=== PATIENT | male | born 1965 | race Caucasian/White ===

== ENCOUNTER 2021-02-11 18:42 | Inpatient (IN) ==
--- NOTE | 2021-02-11 20:52 | XRay Report ---
SINGLE VIEW CHEST CLINICAL HISTORY: Atypical chest pain. FINDINGS: 2 AP, portable, upright chest radiographs are obtained. No prior studies are available for comparison at the time of dictation. The heart is top normal for projection. Emphysematous change is suspected. There is bibasilar scarring/atelectasis. No airspace consolidation or large pleural effus ion is identified. No pneumothorax is seen. The bony thorax is grossly intact. Degenerative change is noted in the shoulders, with calcified joint bodies seen on the right. IMPRESSION: 1. No acute cardiopulmonary abnormality. 2. Suspect emphysema. ACT 112: Negative or not required by law. Electronically signed by: Jameel Cespedes M.D. 02/11/2021 8:50 PM
[2021-02-11] MEDS ORDERED: ASPIRIN CHEW 324 MG PO STA (21:03)
[2021-02-11 21:07] LABS: Basophils # (auto) 0.02 K/uL (0-0.2); Basophils % (auto) 0.1 %; Eosinophils # (auto) 0.18 K/uL (0-0.5); Eosinophils % (auto) 1.3 %; Hematocrit (blood only) 46.4 % (42-52); Hemoglobin 16.8 g/dL (14.0-18.0); Immature Granulocytes # (auto) 0.03 K/uL (0.00-0.02); Immature Granulocytes % (auto) 0.2 %; Lymphocytes # (auto) 2.98 K/uL (1.2-3.4); Lymphocytes % (auto) 21.3 %; Mean Corpuscular Hemoglobin 30.3 pg (25-34); Mean Corpuscular Hgb Conc 36.2 g/dL (32-36); Mean Corpuscular Volume 83.6 fL (80-100); Mean Platelet Volume 9.2 fL (7.4-10.4); Monocytes # (auto) 0.99 K/uL (0.11-0.59); Monocytes % (auto) 7.1 %; Neutrophils # (auto) 9.82 K/uL (1.4-6.5); Platelet Count 334 K/uL (130-400); RDW Coefficient of Variation 14.3 % (11.5-14.5); RDW Standard Deviation 44.3 fL (36.4-46.3); Red Blood Count 5.55 M/uL (4.7-6.1); White Blood Count 14.02 K/uL (4.8-10.8)
--- NOTE | 2021-02-11 21:16 | Emergency Department Note ---
Impression & Plan Left-sided chest pain, Abnormal ECG ED Provider Note INFORMANT: Patient ED PROVIDER(S): David Dahl MD CHIEF COMPLAINT: Chest pain PLAN: Disposition: Admitted Condition: Good Outpatient prescription management: none Referral: None MEDICAL DECISION MAKING: Patient presented because of chest pain. He has a concerning cardiac family history. He did have some subtle ECG changes noted. The patient had aspirin and nitroglycerin ordered. Prior to the nitroglycerin administration his pain resolved. The patient had an unremarkable laboratory panel except for his troponin was markedly elevated. This was concerning for a non-ST elevation [place]. Chest x-ray was unremarkable. The patient had negative cardiac monitoring. The patient's D-dimer was mildly elevated and he was sent for CT imaging. No acute thromboembolic disease was noted. Patient was started on heparin. Consultation was made with the [facility]. The patient will need to be admitted for further management. Triage Nursing notes reviewed and agree them. Vital Signs: reviewed and remarkable for hypertension Differential diagnosis: Cardiac ischemia, aortic dissection, pulmonary embolism, pneumothorax, pneumonia, pericarditis, myocarditis, esophageal rupture, GERD, cholecystitis, pancreatitis, musculoskeletal, as well as other pathologies. Diagnostics interpreted by me: ECG: Twelve-lead ECG reveals a normal sinus rhythm at 80 bpm. There is septal Q waves present. Lateral ST depression present. Subtle half millimeter ST elevation in V2 only. When compared to ECG of 04 Sep 2017 the septal Q wave is old. The lateral ST segments are more depressed. Cardiac Monitoring: Cardiac monitoring ordered by me: The patient was placed on continuous cardiac monitoring and observed. It revealed a normal sinus rhythm at 94 beats per minute without ectopy or evidence of dysrhythmia. Imaging studies: Chest x-ray. Findings: A chest x-ray was performed and revealed no pneumothorax, effusion, infiltrate, pulmonary edema, free air under the diaphragm, or wide mediastinum. Impression: No acute disease. HPI: The patient is a 55 year old male who presents to the Emergency Room with complaints of left-sided chest pain. This started about 20 hours ago and is persisting, albeit more improved at this point The patient also notes the following associated symptoms, left shoulder numbness and discomfort, slight nausea, poor appetite today. The patient has taken no medication for relieving factors. Current pain is rated as 3/10. Patient states that he has been having exertional chest discomfort that resolves with rest over the last several weeks. He is a smoker and does have a strong family history of CAD. No personal known history of CAD. Pt denies LOC, headache, fevers, chills, diaphoresis, visual changes, neck pain, breathing difficulties, vomiting, abdominal pain, back pain, melena, hematochezia, urinary symptoms, numbness, weakness, lymphadenopathy, rash, or other complaints. ROS: See above HPI for pertinent positives & negatives. A total of 10 systems reviewed and were otherwise negative. PAST MEDICAL HISTORY:See Below , patient denies PAST SURGICAL HISTORY:See Below, FAMILY HISTORY:See Below, CAD SOCIAL HISTORY:See Below, smoker HOME MEDICATIONS:See Below ALLERGIES:See Below VITALS:See Below PHYSICAL EXAMINATION: GENERAL: Awake, alert, well-appearing, in no distress HENT: Normocephalic, atraumatic. Oropharynx unremarkable. EYES: Normal conjunctiva. Sclera non-icteric. NECK: Inspection normal. Non-tender. Supple. No nuchal rigidity. FROM. No masses. RESPIRATORY: Clear to auscultation. No wheezes. No rales. Normal respiratory effort. CARDIAC: Normal rate. Normal rhythm. No murmurs. No rubs. Extremities warm and well perfused. Pulses equal. No JVD. GI: Soft, non-distended. No tenderness to palpation. No rebound or guarding. No masses. RECTAL: Deferred. MUSCULOSKELETAL: Atraumatic. Chest examination reveals no tenderness. The back is symmetrical on inspection without obvious abnormality. There is no CVA tenderness to palpation. No joint edema. LOWER EXTREMITIES: Calves are equal size bilaterally and non-tender. No edema. No discoloration. NEURO: Normal sensorium. No sensory or motor deficits noted. SKIN: No rash or jaundice noted. David Dahl MD Past Med/Surg History Social History Smoking Status: Current every day smoker Tobacco Type: Cigarettes Feels Safe at Home: Yes Allergies Allergies Allergy/AdvReac Type Severity Reaction Status Date / Time No Known Allergies Allergy Verified 02/11/21 21:27 Home Meds Home Medications Medication Instructions Recorded Confirmed No Known Home Medications 02/11/21 02/11/21 Results & Data (ED) Vital Signs Vital Signs - 24 hr 02/11/21 18:45 02/11/21 20:42 02/12/21 00:42 Temperature 36.6 C Temperature Source Oral Pulse Rate 94 H 80 Pulse Rate [Right Radial] 83 Pulse Rhythm Regular Pulse Rhythm [Right Radial] Regular Pulse Strength [Right Radial] Normal Respiratory Rate 20 16 16 Respiratory Effort / Characteristics Non-Labored Non-Labored Respiratory Depth Normal Normal Blood Pressure 163/98 H Blood Pressure [Right Arm] 137/90 Blood Pressure Mean 119 Blood Pressure Mean [Right Arm] 105 Blood Pressure Position Sitting Blood Pressure Position [Right Arm] Semi-fowlers Pulse Oximetry 96 98 98 Oxygen Delivery Method Room Air Room Air Room Air Sepsis Recent Fever Within 48 Hours No Sepsis New/Unexplained Change in Mental Status N/A Sepsis Action Taken by Nursing No Action Required 02/12/21 01:25 02/12/21 02:00 Temperature Temperature Source Pulse Rate 84 Pulse Rate [Right Radial] 72 Pulse Rhythm Pulse Rhythm [Right Radial] Regular Pulse Strength [Right Radial] Normal Respiratory Rate 16 Respiratory Effort / Characteristics Non-Labored Respiratory Depth Normal Blood Pressure 137/90 Blood Pressure [Right Arm] 120/84 Blood Pressure Mean Blood Pressure Mean [Right Arm] 96 Blood Pressure Position Blood Pressure Position [Right Arm] Pulse Oximetry 96 Oxygen Delivery Method Room Air Sepsis Recent Fever Within 48 Hours Sepsis New/Unexplained Change in Mental Status Sepsis Action Taken by Nursing Laboratory Data Result diagrams: 02/11/21 21:03 02/11/21 20:51 Lab Results 02/11/21 02/11/21 02/11/21 Range/Units 20:51 20:51 21:03 WBC 14.02 H (4.8-10.8) K/uL RBC 5.55 (4.7-6.1) M/uL Hgb 16.8 (14.0-18.0) g/dL Hct 46.4 (42-52) % MCV 83.6 (80-100) fL MCH 30.3 (25-34) pg MCHC 36.2 H (32-36) g/dL RDW Std Deviation 44.3 (36.4-46.3) fL RDW Coeff of Aracely 14.3 (11.5-14.5) % Plt Count 334 (130-400) K/uL MPV 9.2 (7.4-10.4) fL Immature Gran % (Auto) 0.2 % Neut % (Auto) 70.0 % Lymph % (Auto) 21.3 % [place] % (Auto) 7.1 % Eos % (Auto) 1.3 % Baso % (Auto) 0.1 % Neut # (Auto) 9.82 H (1.4-6.5) K/uL Lymph # (Auto) 2.98 (1.2-3.4) K/uL [place] # (Auto) 0.99 H (0.11-0.59) K/uL Eos # (Auto) 0.18 (0-0.5) K/uL Baso # (Auto) 0.02 (0-0.2) K/uL Immature Gran # (Auto) 0.03 H (0.00-0.02) K/uL PT 9.4 (9.0-12.0) Seconds INR 0.9 (0.9-1.1) APTT 22.6 (21.0-31.0) Seconds PTT Ratio 0.9 D-Dimer 560 H* (0-500) ug/L FEU Sodium 136 (136-145) mmol/L Potassium 4.0 (3.5-5.1) mmol/L Chloride 107 (98-107) mmol/L Carbon Dioxide 21 (21-32) mmol/L Anion Gap 9.0 (3-11) BUN 12 (7-18) mg/dl Creatinine 0.86 (0.6-1.4) mg/dl Est Cr Clr Drug Dosing 129.9 ml/min Est GFR ( Amer) 111.6 ml/min Est GFR (Non-Af Amer) 96.3 ml/min BUN/Creatinine Ratio 13.5 (10-20) Glucose 110 H (70-99) mg/dl Calcium 10.2 H (8.5-10.1) mg/dl Total Bilirubin 0.4 (0.2-1) mg/dl AST 52 H (15-37) U/L ALT 51 (12-78) U/L Alkaline Phosphatase 73 (45-117) U/L Troponin I 3.970 H* (0-0.045) ng/ml Total Protein 8.5 H (6.4-8.2) gm/dl Albumin 4.0 (3.4-5.0) gm/dl Globulin 4.5 H (2.5-4.0) gm/dl Albumin/Globulin Ratio 0.9 (0.9-2) COVID-19 Eval Order SARS-CoV-2 (PCR) (Negative) 02/11/21 02/11/21 Range/Units 23:00 23:00 WBC (4.8-10.8) K/uL RBC (4.7-6.1) M/uL Hgb (14.0-18.0) g/dL Hct (42-52) % MCV (80-100) fL MCH (25-34) pg MCHC (32-36) g/dL RDW Std Deviation (36.4-46.3) fL RDW Coeff of Aracely (11.5-14.5) % Plt Count (130-400) K/uL MPV (7.4-10.4) fL Immature Gran % (Auto) % Neut % (Auto) % Lymph % (Auto) % [place] % (Auto) % Eos % (Auto) % Baso % (Auto) % Neut # (Auto) (1.4-6.5) K/uL Lymph # (Auto) (1.2-3.4) K/uL [place] # (Auto) (0.11-0.59) K/uL Eos # (Auto) (0-0.5) K/uL Baso # (Auto) (0-0.2) K/uL Immature Gran # (Auto) (0.00-0.02) K/uL PT (9.0-12.0) Seconds INR (0.9-1.1) APTT (21.0-31.0) Seconds PTT Ratio D-Dimer (0-500) ug/L FEU Sodium (136-145) mmol/L Potassium (3.5-5.1) mmol/L Chloride (98-107) mmol/L Carbon Dioxide (21-32) mmol/L Anion Gap (3-11) BUN (7-18) mg/dl Creatinine (0.6-1.4) mg/dl Est Cr Clr Drug Dosing ml/min Est GFR ( Amer) ml/min Est GFR (Non-Af Amer) ml/min BUN/Creatinine Ratio (10-20) Glucose (70-99) mg/dl Calcium (8.5-10.1) mg/dl Total Bilirubin (0.2-1) mg/dl AST (15-37) U/L ALT (12-78) U/L Alkaline Phosphatase (45-117) U/L Troponin I (0-0.045) ng/ml Total Protein (6.4-8.2) gm/dl Albumin (3.4-5.0) gm/dl Globulin (2.5-4.0) gm/dl Albumin/Globulin Ratio (0.9-2) COVID-19 Eval Order Covid19 at [facility] SARS-CoV-2 (PCR) NEGATIVE (Negative) Administered Medications Heparin Sodium/Dextrose (Heparin Sodium/Dextrose) 25,000 units in 500 mls @ 35 mls/hr IV .[id number]; Protocol Stop: 03/13/21 22:14 Last Admin: 02/11/21 23:43 Dose: 1,750 units/hr, 35 mls/hr Documented by: [id number] Cosigned by: [id number] Discontinued Medications Aspirin (Aspirin Chew 324 Mg) 324 mg PO NOW STA Stop: 02/11/21 21:04 Last Admin: 02/11/21 21:31 Dose: 324 mg Documented by: [id number] Heparin Sodium (Porcine) (Heparin Sod (Porcine) 1000 Unit/Ml) 1 units IV NOW ONE Stop: 02/11/21 22:10 Last Admin: 02/11/21 23:43 Dose: 8,000 units Documented by: [id number] Cosigned by: [id number] Heparin Sodium/Dextrose (Heparin Iv Adult Wt-Based Standard With Bolus Protocol) 1 ea N/A NOW STA; Protocol Stop: 02/11/21 21:55 Last Admin: 02/11/21 23:46 Dose: Not Given Documented by: [id number] Ioversol (Optiray 320 125ml) 119 ml IV ONCE ONE Stop: 02/11/21 23:14 Last Admin: 02/11/21 23:13 Dose: 119 ml Documented by: [id number] Metoprolol Tartrate (Metoprolol Tartrate 25 Mg Tab) 12.5 mg PO NOW STA Stop: 02/12/21 00:45 Last Admin: 02/12/21 01:26 Dose: 12.5 mg Documented by: [id number] Metoprolol Tartrate (Metoprolol Tartrate 1 Mg/Ml Vial) 2.5 mg IV NOW STA Stop: 02/12/21 00:45 Last Admin: 02/12/21 01:25 Dose: 2.5 mg Documented by: [id number] Imaging Data Radiologist's Impression: Chest X-Ray 02/11/21 20:38 SINGLE VIEW CHEST CLINICAL HISTORY: Atypical chest pain. FINDINGS: 2 AP, portable, upright chest radiographs are obtained. No prior studies are available for comparison at the time of dictation. The heart is top normal for projection. Emphysematous change is suspected. There is bibasilar scarring/atelectasis. No airspace consolidation or large pleural effusion is identified. No pneumothorax is seen. The bony thorax is grossly intact. Degenerative change is noted in the shoulders, with calcified joint bodies seen on the right. IMPRESSION: 1. No acute cardiopulmonary abnormality. 2. Suspect emphysema. ACT 112: Negative or not required by law. Electronically signed by: Jameel Cespedes M.D. 02/11/2021 8:50 PM Discharge Plan Visit Data Chief Complaint: Chest Pain Stated Complaint: CHEST PAIN SINCE MIDNIGHT ED Provider: David Dahl Discharge Problem: Left-sided chest pain, Abnormal ECG Forms Stand Alone Forms: [place] Prescriptions Prescriptions: No Action No Known Home Medications RF: 0 Referrals Referrals: PCP,NO [Physician] -
[2021-02-11 21:19] LABS: INR 0.9 (0.9-1.1); Partial Thromboplastin Ratio 0.9; Partial Thromboplastin Time 22.6 Seconds (21.0-31.0); Prothrombin Time 9.4 Seconds (9.0-12.0)
[2021-02-11 21:23] LABS: BUN Creatinine Ratio 13.5 (10-20); Calcium 10.2 mg/dl (8.5-10.1); Creatinine Clr Calc Pharmacy 129.9 ml/min; Est GFR (African American) 111.6 ml/min; Est GFR (Non-African American) 96.3 ml/min
[2021-02-11 21:43] LABS: Albumin Globulin Ratio 0.9 (0.9-2); Bilirubin,Total 0.4 mg/dl (0.2-1); Globulin 4.5 gm/dl (2.5-4.0); Total Protein 8.5 gm/dl (6.4-8.2); Troponin I 3.97 ng/ml (0-0.045)
[2021-02-11] MEDS ORDERED: MoRPHine SULFATE 2 MG/ML CARP IV PRN (21:54)
[2021-02-11] MEDS ORDERED: Heparin IV Adult Wt-Based Standard WITH Bolus Protocol STA (21:54)
[2021-02-11 22:01] LABS: D Dimer 560 ug/L FEU (0-500)
[2021-02-11] MEDS ORDERED: HEPARIN SOD (PORCINE) 1000 UNIT/ML IV ONE (22:09)
[2021-02-11] MEDS ORDERED: OPTIRAY 320 125ml IV ONE (23:13)
[2021-02-11] MEDS: HEPARIN SODIUM/DEXTROSE 25,000 UNITS/500 ML BAG IV SCH (23:43)
[2021-02-12] MEDS ORDERED: METOPROLOL TARTRATE 1 MG/ML VIAL IV STA (00:44)
[2021-02-12] MEDS ORDERED: METOPROLOL TARTRATE 25 MG TAB PO STA (00:44)
[2021-02-12] MEDS: NITROGLYCERIN SL 0.4 MG/TAB TAB SL PRN ×3 (03:26→04:04)
[2021-02-12] MEDS ORDERED: ACETAMINOPHEN 325 MG TAB PO PRN (03:28)
[2021-02-12] MEDS ORDERED: NITROGLYCERIN SL 0.4 MG/TAB TAB SL PRN (03:28)
[2021-02-12] MEDS: NITROGLYCERIN 2% OINTMENT 30GM TUBE EXT SCH ×2 (04:04→15:42)
[2021-02-12] MEDS: SODIUM CHLORIDE 0.9% 1000ML 1,000 ML IV SCH ×2 (04:14→19:33)
[2021-02-12 05:30] LABS: Basophils # (auto) 0.04 K/uL (0-0.2); Basophils % (auto) 0.3 %; Eosinophils # (auto) 0.15 K/uL (0-0.5); Eosinophils % (auto) 1.2 %; Hematocrit (blood only) 44.6 % (42-52); Hemoglobin 15.8 g/dL (14.0-18.0); Immature Granulocytes # (auto) 0.03 K/uL (0.00-0.02); Immature Granulocytes % (auto) 0.2 %; Lymphocytes # (auto) 2.37 K/uL (1.2-3.4); Lymphocytes % (auto) 19.6 %; Mean Corpuscular Hemoglobin 29.9 pg (25-34); Mean Corpuscular Hgb Conc 35.4 g/dL (32-36); Mean Corpuscular Volume 84.5 fL (80-100); Mean Platelet Volume 8.6 fL (7.4-10.4); Monocytes # (auto) 0.74 K/uL (0.11-0.59); Monocytes % (auto) 6.1 %; Neutrophils # (auto) 8.78 K/uL (1.4-6.5); Neutrophils % (auto) 72.6 %; Platelet Count 300 K/uL (130-400); RDW Coefficient of Variation 14.5 % (11.5-14.5); RDW Standard Deviation 45.2 fL (36.4-46.3); Red Blood Count 5.28 M/uL (4.7-6.1); White Blood Count 12.11 K/uL (4.8-10.8)
[2021-02-12 05:51] LABS: Partial Thromboplastin Ratio 1.8
[2021-02-12 06:17] LABS: Partial Thromboplastin Time 47.3 Seconds (21.0-31.0)
[2021-02-12 06:43] LABS: BUN Creatinine Ratio 13.9 (10-20); Calcium 9.6 mg/dl (8.5-10.1); Creatinine Clr Calc Pharmacy 136.2 ml/min; Est GFR (African American) 113.8 ml/min; Est GFR (Non-African American) 98.2 ml/min; Magnesium 2.2 mg/dl (1.8-2.4); Potassium 3.9 mmol/L (3.5-5.1)
[2021-02-12 07:13] LABS: Troponin I 4.6 ng/ml (0-0.045)
--- NOTE | 2021-02-12 07:15 | CT Scan Report ---
CHEST CTA for PULMONARY ARTERIES CT DOSE: 735.25 mGy.cm HISTORY: Atypical chest pain , elevated dimer TECHNIQUE: Multiaxial CT images of the chest were performed following the intravenous administration of contrast to evaluate the pulmonary arteries. Maximal intensity projection images were also obtaine d. A dose lowering technique was utilized adhering to the principles of ALARA. COMPARISON STUDY: CT abdomen 04/18/2006. FINDINGS: The visualized liver demonstrates fatty change. The spleen is unremarkable. Bilateral benig n adrenal adenomas are again noted. Possible small exophytic lesion within the upper pole the left ki dney on image 50. This measures 9 mm there is technically too small to characterize. No mediastinal o r hilar lymphadenopathy. No pleural or pericardial effusions. The heart is normal in size. Moderate c alcified plaque within the aortic valve. Normal caliber thoracic aorta with no evidence for dissectio n. No filling defects within the pulmonary arteries to suggest a pulmonary embolus. Slightly distende d gas and fluid-filled esophagus. No fractures within the visualized osseous structures. Partially vi sualized degenerative changes within the right humeral joint. No pneumothorax. Mild central bronchial wall thickening. Small linear scarlike density within the right middle lobe anteriorly. No focal jann g consolidations to suggest pneumonia. No evidence for pulmonary edema. IMPRESSION: 1. No evidence for pulmonary embolus. 2. No focal lung consolidations to suggest pneumonia. 3. Mild central bronchial wall thickening. This could represent a mild chronic bronchitis. 4. Slightly distended gas and fluid-filled esophagus. 5. Hepatic steatosis. 6. Possible 9 mm exophytic lesion within the upper pole the left kidney. This is too small to charact erize but could represent a solid renal lesion. Therefore, dedicated renal CT or MRI is recommended t o exclude the possibility of a renal mass. 7. These findings were called/faxed to the emergency department following dictation. ACT 112: Positive. There are findings on this exam that require communication between the performing entity and the patient following Patient Test Result Information Act ([place] Act 112) guidelines. Electronically signed by: Celso Narayanan M.D. 02/12/2021 7:14 AM
--- NOTE | 2021-02-12 08:01 | History and Physical Report ---
DATE OF ADMISSION: 02/12/2021. CHIEF COMPLAINT: Chest pain. HISTORY OF PRESENT ILLNESS: A 55-year-old male with no significant past medical history, who presents with chest pain. The patient says since last midnight he is having chest pain on the left side of his chest and some numbness in the left shoulder. It was 8/10 in severity in the night , it was 5/10 when he came to the ER. After nitro the pain is almost resolved now. There was slight sweating and chills during the episode. No shortness of breath, no headache, no dizziness, no blurred visions, no earache, no runny nose, no sore throat, no cough, no fevers, no abdominal pain. Normal bowel and bladder movements. No hematuria. No blood in the stools or black stools. No swelling in the legs. Otherwise, he is active. He says his father had CABG at the age of 62 and he smokes 1-2 pack of cigarettes daily. ALLERGIES: No known drug allergies. PAST MEDICAL HISTORY: As mentioned above. PAST SURGICAL HISTORY: Appendectomy, repair of the rotator cuff. MEDICATIONS: None. FAMILY HISTORY: Father had CABG. SOCIAL HISTORY: Smokes 1-2 packs a day for last 30 years. No alcohol use. No drug use. REVIEW OF SYSTEMS: As per HPI. Rest of the review of systems is negative. PHYSICAL EXAMINATION: GENERAL: The patient is obese, not in acute distress. VITAL SIGNS: Temperature 36.6, pulse 94, respiratory rate 20, blood pressure 163/98, oxygen 96% on room air. HEENT: Pupils equal, round and reactive to light. Oral mucosa moist. NECK: No JVD. No neck masses. CARDIOVASCULAR: S1 and S2 heard. Ejection systolic murmur heard, there is tachycardia. RESPIRATORY SYSTEM: Normal AP diameter. No accessory muscle use. No wheezing, no crackles. ABDOMEN: Soft, bowel sounds present, nontender, no distention. CENTRAL NERVOUS SYSTEM: Cranial nerves II-XII grossly intact, nonfocal. EXTREMITIES: No edema, no erythema. LABORATORY DATA: WBC 14, hemoglobin 16.8, hematocrit 46.4, platelets 334. PT 9.4, INR 0.9, APTT 22.6. D-dimer 560. Sodium 136, potassium 4, chloride 107, bicarbonate 21, BUN 12, creatinine 0.8, serum glucose 110, calcium 10.2, total bilirubin 0.4, AST 52, ALT 51, alkaline phosphatase 73, troponin I of 3.9. SARS-CoV-2 PCR negative. IMAGING DATA: Chest x-ray, emphysema, no acute findings. CTA of the chest, no PE. EKG: Normal sinus rhythm at a rate of 88, possible left atrial enlargement, septal infarct, age indeterminate. Possible ST depression in lateral leads. ASSESSMENT AND PLAN: This is a 55-year-old male who presents with chest pain and found to have non-ST elevated myocardial infarction. 1. Non-ST elevated myocardial infarction: There are EKG changes, ST depression in lateral leads. Troponin of 3.9. Risk factors of smoking, age and family history. Started with IV heparin . Will continue with aspirin, high-dose statin, and nitroglycerin paste and b hailey. Follow lipid profile. Follow serial enzymes, echo. Keep him n.p.o. and consult cardiology in the a.m. for possible cardiac catheterization. 2. Smoking: Needs counseling. 3. Mild elevation of calcium Follow the repeat labs in the a.m. 4. Hypertension: Could be situational. Placed on Lopressor and nitroglycerin paste. Will monitor. 5. Deep venous thrombosis prophylaxis: On IV heparin. DISPOSITION: Closely monitor in the tele floor. Level 1 full code. Expect to discharge home and follow with family doctor. Job ID: [id number] [facility]
--- NOTE | 2021-02-12 08:58 | Electrocardiogram Report ---
Test Reason : Blood Pressure : / mmHG Vent. Rate : 088 BPM Atrial Rate : 088 BPM P-R Int : 178 ms QRS Dur : 094 ms QT Int : 376 ms P-R-T Axes : 062 001 -42 degrees QTc Int : 454 ms Normal sinus rhythm Possible Left atrial enlargement Abnormal ECG ST segment changes concerning for ischemia Confirmed by Hiren Rice ([id number]) on 02/12/2021 8:57:35 AM Referred By: REFERRED SELF Confirmed By:Jose Rice
[2021-02-12] MEDS: ASPIRIN 81 MG ECTAB PO SCH (09:00)
[2021-02-12] MEDS: ATORVASTATIN 40 MG TAB PO SCH (09:01)
[2021-02-12] MEDS: METOPROLOL TARTRATE 25 MG TAB PO SCH ×2 (09:01→20:34)
--- NOTE | 2021-02-12 09:04 | Electrocardiogram Report ---
Test Reason : Blood Pressure : / mmHG Vent. Rate : 077 BPM Atrial Rate : 077 BPM P-R Int : 186 ms QRS Dur : 094 ms QT Int : 410 ms P-R-T Axes : 064 002 -53 degrees QTc Int : 463 ms Normal sinus rhythm Left ventricular hypertrophy with repolarization abnormality Abnormal ECG When compared with ECG of 11-FEB-2021 18:45, (unconfirmed) T wave inversion now evident in Inferior leads Confirmed by Hiren Rice ([id number]) on 02/12/2021 9:04:23 AM Referred By: REFERRED SELF Confirmed By:Jose Rice
[2021-02-12] MEDS ORDERED: ONDANSETRON INJ 2 MG/ML 2 ML VIAL ONE (09:47)
--- NOTE | 2021-02-12 09:55 | Cardiology Consultation ---
Date of Consultation February 12, 2021 Assessment & Plan (1) Non-ST elevation (NSTEMI) myocardial infarction: (2) Severe aortic stenosis: (3) Bicuspid aortic valve: Patient presenting with NSTEMI. Currently chest pain-free. Elevated troponin secondary to severe symptomatic aortic stenosis with possible underlying coronary disease. No significant regional wall motion abnormalities on echocardiogram. Currently resting comfortably. Risk versus benefit of cardiac catheterization with coronary angiography discussed. Patient agreeable. Natural history and pathophysiology of bicuspid aortic valve with severe aortic stenosis discussed. Prognosis reviewed. Recommend transfer to tertiary care facility after coronary angiography. Patient is agreeable. Hold IV heparin in anticipation of coronary angiography. History of Present Illness Reason for Consultation: NSTEMI Requesting Physician: Dr. López Attending Physician: Jonah López MD History of Present Illness 55-year-old patient presented to the emergency department with chest discomfort. Describes a sharp chest pain and heaviness beginning at midnight 02/11/2021. The discomfort waxed and waned throughout the day ultimately prompting ER evaluation at 5 PM. When he presented to the ER he reported 7-8/10 chest discomfort. Treated with IV heparin. Discomfort reduced to 2/10. 2 recurrent episodes of moderate chest discomfort overnight. Currently pain-free. Treated with sublingual nitroglycerin x2. Now reports headache and nausea attributed to nitroglycerin. Describes exertional chest discomfort beginning approximately 3 months ago while push mowing his lawn. He also owns a cleaning business and has consistently reproduce discomfort with moderate to high levels of activity. No lightheadedness, dizziness, syncope, or near syncope. Admits to smoking 1 pack of cigarettes per day for more than 30 years. Denies personal history of coronary disease, congestive heart failure, or rheumatic fever as a child. Echocardiogram performed more than 10 years ago describing mild aortic stenosis without follow-up. Preliminary review of bedside 2D transthoracic echocardiogram demonstrating preserved LV systolic function, no regional wall motion abnormalities, bicuspid aortic valve with severe aortic stenosis. Allergies Allergy/AdvReac Type Severity Reaction Status Date / Time No Known Allergies Allergy Verified 02/11/21 21:27 Home Medications Medication Instructions Recorded Confirmed Type aspirin 81 mg tablet,delayed 81 mg PO DAILY 30 Days #30 tab 02/12/21 Rx release atorvastatin 40 mg tablet 80 mg PO QAM 30 Days #60 tab 02/12/21 Rx metoprolol tartrate 25 mg tablet 12.5 mg PO BID 30 Days #30 tab 02/12/21 Rx Patient History Social History Smoking Status: Current every day smoker Tobacco Type: Cigarettes Hx Substance Use: No Communication Ability: Effective How many Children do You have: 2 Feels Safe at Home: Yes Assistive Devices: None Review of Systems Review of Systems: All systems reviewed & are unremarkable except as noted in Subjective Physical Exam Constitutional: well developed and well nourished; no acute distress Respiratory: no respiratory distress, no labored breathing, no retractions and does not use accessory muscles Auscultation: no diminished lung sounds, no crackles, no rales, no rhonchi and no wheezes Cardiovascular: Rate/Rhythm: regular rate and regular rhythm Heart Sounds: normal S1 and + murmur (3/6 medium pitched, mid peaking systolic ejection murmur); + abnormal S2, no gallop and no cardiac rub Vessels: + carotid bruit (2/4 bilateral versus transmitted aortic valve murmur), femoral pulses present and radial pulses present; no JVD Gastrointestinal (Abdomen): Inspection/Auscultation: normal bowel sounds; abdomen not distended Percussion/Palpation: abdomen soft; abdomen nontender, no guarding and abdomen not rigid Neurologic: CN's II-XI intact bilaterally and moves all extremities; no focal motor deficits Speech / Cognition: normal speech Motor/Sensory: no tremor Psychiatric: A+Ox3, euthymic affect Results & Data ([facility]) Vital Signs (Past 12 Hours) Vital Signs Pulse Pulse Resp BP BP Pulse Ox 02/12/21 08:00 73 16 108/59 L 96 02/12/21 05:30 78 16 133/81 94 02/12/21 04:50 65 17 92 02/12/21 04:40 66 17 92 02/12/21 04:30 63 17 91 02/12/21 04:20 83 17 93 02/12/21 04:10 82 22 119/83 92 02/12/21 04:00 85 18 119/82 92 02/12/21 03:50 75 20 92 02/12/21 03:40 72 15 95 02/12/21 03:30 86 19 122/83 92 02/12/21 03:28 83 16 122/83 93 02/12/21 03:20 72 22 93 02/12/21 03:10 66 20 91 02/12/21 03:00 80 29 H 112/74 95 02/12/21 02:50 74 23 93 02/12/21 02:40 75 20 94 02/12/21 02:33 93 02/12/21 02:20 79 22 95 02/12/21 02:10 77 12 94 02/12/21 02:00 75 72 18 141/105 H 120/84 95 02/12/21 01:50 78 18 94 02/12/21 01:40 72 16 120/84 93 02/12/21 01:30 83 22 131/99 93 02/12/21 01:25 84 137/90 02/12/21 01:20 81 17 91 02/12/21 01:10 82 21 93 02/12/21 01:00 84 18 137/90 02/12/21 00:50 90 17 94 02/12/21 00:42 83 16 137/90 98 02/12/21 00:40 92 H 20 94 02/12/21 00:30 80 19 135/95 02/12/21 00:20 83 14 95 02/12/21 00:10 81 23 94 02/12/21 00:00 74 16 140/99 95 02/11/21 23:50 89 17 95 02/11/21 23:40 79 22 94 02/11/21 23:30 76 22 95 02/11/21 23:20 89 18 96 02/11/21 23:14 89 23 96 02/11/21 23:00 91 02/11/21 22:50 85 18 93 02/11/21 22:40 93 H 17 95 02/11/21 22:30 77 15 02/11/21 22:20 83 18 94 02/11/21 22:10 84 16 94 02/11/21 22:00 86 28 H 91 02/11/21 21:50 87 14 96
--- NOTE | 2021-02-12 09:56 | Pre Anesthesia Assessment ---
Date of Service February 12, 2021 Pre Sedation Assessment Vital Signs Temp Pulse Pulse Resp BP BP BP 02/13/21 08:00 58 L 02/13/21 07:00 36.8 C 69 17 152/92 H 02/13/21 04:49 70 02/13/21 03:28 02/13/21 03:18 36.6 C 76 18 141/84 H 02/12/21 23:42 36.9 C 68 18 132/74 02/12/21 19:15 36.8 C 73 18 134/83 02/12/21 15:50 69 16 137/82 02/12/21 15:04 76 16 132/83 02/12/21 14:26 36.7 C 65 16 117/82 02/12/21 13:30 69 125/85 02/12/21 13:00 65 02/12/21 12:30 61 98/72 L 02/12/21 12:15 73 14 109/71 02/12/21 12:00 63 118/74 02/12/21 11:45 65 14 118/67 02/12/21 11:31 68 150/89 H 02/12/21 11:30 67 13 Pulse Ox Pulse Ox 02/13/21 08:00 02/13/21 07:00 93 02/13/21 04:49 02/13/21 03:28 94 02/13/21 03:18 90 02/12/21 23:42 94 02/12/21 19:15 91 02/12/21 15:50 92 02/12/21 15:04 93 02/12/21 14:26 98 02/12/21 13:30 95 02/12/21 13:00 96 02/12/21 12:30 93 02/12/21 12:15 94 02/12/21 12:00 93 02/12/21 11:45 94 02/12/21 11:31 94 02/12/21 11:30 95 Cardiovascular + regular rate and + regular rhythm + S1 normal and + murmur; no S2 normal + carotid bruit, + femoral pulses present and + radial pulses present; no JVD no edema Respiratory normal respiratory effort, lungs clear to auscultation Pre-Sedation Airway Assessment Smoking Status: Current every day smoker IV Notes The planned sedation has been discussed with the patient. Informed Consent was obtained. I have identified the patient, determined the appropriateness of sed ation and have assessed the patient immediately prior to the procedure. All medicine(s) and interventions are by my order.
[2021-02-12 10:08] LABS: Estimated Average Glucose 126 mg/dl
[2021-02-12] MEDS ORDERED: fentaNYL citrate 100 MCG/2 ML VIAL ONE (10:19)
[2021-02-12] MEDS ORDERED: MIDAZOLAM HCL 1 MG/ML 2ML VIAL ONE (10:19)
[2021-02-12] MEDS ORDERED: niCARdipine HCL INJ 2.5 MG/ML 10 ML AMP ONE (10:19)
[2021-02-12] MEDS ORDERED: HEPARIN (PORCINE) 1000 UNIT/ML 10 ML (CATH LAB USE ONLY) ONE (10:19)
[2021-02-12] MEDS ORDERED: NITROGLYCERIN/D5W 100MCG/ML 20ML SYR ONE (10:20)
--- NOTE | 2021-02-12 10:55 | Post Anesthesia Assessment ---
Date of Service February 12, 2021 Post Sedation Assessment Vital Signs Temp Pulse Pulse Resp BP BP BP 02/13/21 08:00 58 L 02/13/21 07:00 36.8 C 69 17 152/92 H 02/13/21 04:49 70 02/13/21 03:28 02/13/21 03:18 36.6 C 76 18 141/84 H 02/12/21 23:42 36.9 C 68 18 132/74 02/12/21 19:15 36.8 C 73 18 134/83 02/12/21 15:50 69 16 137/82 02/12/21 15:04 76 16 132/83 02/12/21 14:26 36.7 C 65 16 117/82 02/12/21 13:30 69 125/85 02/12/21 13:00 65 02/12/21 12:30 61 98/72 L 02/12/21 12:15 73 14 109/71 02/12/21 12:00 63 118/74 02/12/21 11:45 65 14 118/67 02/12/21 11:31 68 150/89 H 02/12/21 11:30 67 13 Pulse Ox Pulse Ox 02/13/21 08:00 02/13/21 07:00 93 02/13/21 04:49 02/13/21 03:28 94 02/13/21 03:18 90 02/12/21 23:42 94 02/12/21 19:15 91 02/12/21 15:50 92 02/12/21 15:04 93 02/12/21 14:26 98 02/12/21 13:30 95 02/12/21 13:00 96 02/12/21 12:30 93 02/12/21 12:15 94 02/12/21 12:00 93 02/12/21 11:45 94 02/12/21 11:31 94 02/12/21 11:30 95 Recovery Score Activity: Moves 4 extremities Respiration: Deep Breath/Cough Circulation: +/-20% PreAnes Value Consciousness: Arouseable (by name) Oxygen Saturation: > 92% On Room Air Discharge Sedation Level of Care: Phase I Post Sedation Plan On clinical assessment, the patient appears to have tolerated the sedation without complications. Patient is recovering as anticipated. Patient will continue to be monitored by nursing and may be discharged when sedation discharge criteria are met per below protocol. Upon Completions of procedure up to 15 minutes continue every 5 minute vital signs and the P.A.R. score; then discharge to a Phase I or Fast Track to Phase II per the following guidelines: * Discharge Patient to appropriate Phase II area if PAR is 8 or greater or return to pre- procedure baseline. The post - procedure orders will be as directed. * If PAR score is less than 8 or not return to pre-procedure baseline then patient will follow Phase I monitoring till PAR is reached for Phase II. The Phase I may be done in procedure room or may call to secure a Phase I area. * If naloxone or flumazenil are used for reversal, hold in Phase I for continued monitoring from when last reversal dose was given for a minimum of 60 minutes or longer pending the nurse and/or physician discretion of patient condition before discharge to Phase II. Please call the Sedation Physician to re-evaluate and complete post-note for discharge to Phase II area. Do NOT discharge from procedure sedation or Phase 1 until post- sedation evaluation note is complete by procedure /sedation MD Sedation Discharge Instructions to be given to the patient at discharge to home.
--- NOTE | 2021-02-12 11:11 | Cardiac Catheterization ---
Cardiac Cath Procedure Full Procedure Date February 12, 2021 Pre-Procedure Diagnosis Pre-Procedure Diagnosis: Non STEMI and Valvular Disease (Severe Aortic stenosis, bicuspid aortic valve) AUC Score AUC Score: 8 Post-Procedure Diagnosis Post-Procedure Diagnosis: Severe CAD Procedure(s) Performed Procedure(s) Performed: Coronary Angiography Cuprous Chloride Helper Christian Martinez DO Hair Blender(s) Cindyr EYELET CUTTER Estimated Blood Loss Estimated Blood Loss: 5cc Medication(s) Medication(s): Fentanyl, Heparin, Lidocaine 1%, Nicardipine and Versed Summary of Findings 100% proximal RCA stenosis fills via left to right collaterals. Hemodynamics Rest Ao:: 112/71/88 Final Ao: 121/76/83 LV: N/A Recommendations Recommendations: CABG and Valve Replacement Radiation Exposure (mGy) 836 Contrast (mls) 50 Fluids (cc crystalloids) Fluids (cc crystalloids): 30 Nss Drains Drains: N/A Anesthesia Moderate sedation. Start, 1033. End 1049. Sedation monitor: Chandu SALINAS Procedural Complication(s) None Disposition Gynecological Assistant Holding/Recovery I attest to the content of the Intraoperative Record and any orders documented therein. Any exceptions are noted below. ACC Data: Gynecological Assistant Cardiac Status Clinical evaluation leading to the procedure 55-year-old patient presented to the hospital with 3-month history of exertional angina followed by episode of resting angina probably 4 hours prior to presentation. Diagnosed with NSTEMI and severe aortic stenosis secondary to bicuspid valve. CAD Presenation: Non STEMI Heart Failure: No Cardiogenic Shock within 24 Hours: No Cardiac Arrest within 24 Hours: No Imaging Studies Past 6 Months: Yes Stress Studies Past 6 Months: No STEMI OR Non-STEMI Symptom Onset Date: 02/11/21 Symptom Onset Time: 00:00 Thrombolytics: No Coronary Anatomy Dominant: Right Left Main (% Stenosis): Normal LAD (% Stenosis): Proximal (Mild luminal irregularities, 10%) and Mid (20%) D1 (% Stenosis): Normal (small vessel) D2 (% Stenosis): Normal (Large vessel which reaches the left ventricular apex giving rise to left to right collaterals supplying right posterior descending artery.) Circumflex (% Stenosis): Mid (30% at bifurcation of large OM1) OM1 (% Stenosis): Normal (Large vessel which bifurcates proximally.) L PL1 (% Stenosis): Normal RCA (% Stenosis): Proximal (100% with large thrombus) R PDA (% Stenosis): Normal (Fills via [id number] collaterals from second large diagonal branch vessel) Diagnostic Physicians Name: Christian Martinez DO Closure Device Percutaneous Entry Location: Radial Closure Device: Radial Band Recommendations: CABG and Valve Replacement Intraprocedure Events Significant Disection: No Perforation: No
[2021-02-12 21:39] LABS: Partial Thromboplastin Ratio 1.4; Partial Thromboplastin Time 37.8 Seconds (21.0-31.0)
--- NOTE | 2021-02-12 21:41 | Hospitalist Progress Note ---
Date of Service February 12, 2021 Assessment & Plan Admission and Anticipated Discharge Date Admission Date: February 12, 2021 Supervising Physician Co-Signing Physician Notes ASSESSMENT AND PLAN: This is a 55-year-old male who presents with chest pain and found to have non-ST elevated myocardial infarction. 1. Non-ST elevated myocardial infarction 100% RCA Occlusion Severe Aortic Stenosis -- s/p Cardiac Cath (+) 100% RCA Occlusion Severe , Bicuspid Aortic Valve -- transfer to [facility] for CABG -- continue Heparin drip Metoprolol, Lipitor 2. Smoking: Needs counseling. 3. Mild elevation of calcium 4. Hypertension: -- monitor 5. Deep venous thrombosis prophylaxis: On IV heparin. DISPOSITION: transfer to [facility] Subjective ff up for chest pain, etc seen resting in bed, comfortable reports mild chest discomfort 2/10 no dyspnea, palpitations, dizziness no bleeding denies other symptoms Review of Systems Review of Systems: all noted and negative except for above Physical Exam Physical Exam: General- oriented x 3, not in distress, speaks in sentences with no effort or accessory muscle use Eyes- anicteric Neck- no JVD Lungs- clear breath sounds bilaterally, no rales/wheezes Heart- normal rate, regular rhythm; no murmurs Abdomen- normal bowel sounds, nondistended, soft, nontender Extremities- no pretibial edema, no calf tenderness Neuro- alert, oriented x 3; no gross focal neurologic deficits Skin- warm & dry Results & Data Results & Data ([facility]) Vital Signs (Past 12 Hours) Vital Signs Temp Pulse Pulse Resp BP BP Pulse Ox 02/12/21 19:15 36.8 C 73 18 134/83 91 02/12/21 15:50 69 16 137/82 92 02/12/21 15:04 76 16 132/83 93 02/12/21 14:26 36.7 C 65 16 117/82 98 02/12/21 13:30 69 125/85 95 02/12/21 13:00 65 96 02/12/21 12:30 61 98/72 L 93 02/12/21 12:15 73 14 109/71 94 02/12/21 12:00 63 118/74 93 02/12/21 11:45 65 14 118/67 94 02/12/21 11:31 68 150/89 H 94 02/12/21 11:30 67 13 95 02/12/21 11:15 60 20 112/70 94 02/12/21 11:00 65 20 124/89 95 all noted and reviewed including below
--- NOTE | 2021-02-12 21:47 | Discharge Summary ---
Date of Service February 12, 2021 Admission HPI Per Admitting Provider CHIEF COMPLAINT: Chest pain. HISTORY OF PRESENT ILLNESS: A 55-year-old male with no significant past medical history, who presents with chest pain. The patient says since last midnight he is having chest pain on the left side of his chest and some numbness in the left shoulder. It was 8/10 in severity in the night , it was 5/10 when he came to the ER. After nitro the pain is almost resolved now. There was slight sweating and chills during the episode. No shortness of breath, no headache, no dizziness, no blurred visions, no earache, no runny nose, no sore throat, no cough, no fevers, no abdominal pain. Normal bowel and bladder movements. No hematuria. No blood in the stools or black stools. No swelling in the legs. Otherwise, he is active. He says his father had CABG at the age of 62 and he smokes 1-2 pack of cigarettes daily. Admission Exam (Per Admitting) Constitutional PHYSICAL EXAMINATION: GENERAL: The patient is obese, not in acute distress. VITAL SIGNS: Temperature 36.6, pulse 94, respiratory rate 20, blood pressure 163/98, oxygen 96% on room air. HEENT: Pupils equal, round and reactive to light. Oral mucosa moist. NECK: No JVD. No neck masses. CARDIOVASCULAR: S1 and S2 heard. Ejection systolic murmur heard, there is tachycardia. RESPIRATORY SYSTEM: Normal AP diameter. No accessory muscle use. No wheezing, no crackles. ABDOMEN: Soft, bowel sounds present, nontender, no distention. CENTRAL NERVOUS SYSTEM: Cranial nerves II-XII grossly intact, nonfocal. EXTREMITIES: No edema, no erythema. Discharge Data Consultations 02/11/21 21:56 ED Decision to Admit Stat 02/12/21 08:00 Consult Cardiology Routine Procedures Performed Operation Date: 02/12/21 10:00 Actual Procedures p Cineradiography w/Routine Exam - Christian Martinez DO p Cath, Coronaries ONLY (no LV) - Christian Martinez DO Hospital Course (1) Non-ST elevation (NSTEMI) myocardial infarction: (2) Severe aortic stenosis: (3) Bicuspid aortic valve: ASSESSMENT AND PLAN: This is a 55-year-old male who presents with chest pain and found to have non-ST elevated myocardial infarction. 1. Non-ST elevated myocardial infarction 100% RCA Occlusion Severe Aortic Stenosis -- s/p Cardiac Cath (+) 100% RCA Occlusion Severe , Bicuspid Aortic Valve -- transfer to [facility] for CABG -- continue Heparin drip Metoprolol, Lipitor 2. Smoking: Needs counseling. 3. Mild elevation of calcium 4. Hypertension: -- monitor 5. Deep venous thrombosis prophylaxis: On IV heparin. DISPOSITION: transfer to [facility]
[2021-02-12] MEDS ORDERED: Heparin IV Adult Wt-Based Standard WITH Bolus Protocol STA (22:01)
[2021-02-12] MEDS ORDERED: HEPARIN IV BOLUS 4,000 UNITS in SYRINGE 0 ML IV ONE (22:15)
[2021-02-12] MEDS: HEPARIN SODIUM/DEXTROSE 25,000 UNITS/500 ML BAG IV SCH (22:18)
[2021-02-13 04:01] LABS: Partial Thromboplastin Ratio 2.2
[2021-02-13 04:04] LABS: Partial Thromboplastin Time 57.2 Seconds (21.0-31.0)
[2021-02-13] MEDS: SODIUM CHLORIDE 0.9% 1000ML 1,000 ML IV SCH ×2 (05:56→18:37)
[2021-02-13 06:20] LABS: Partial Thromboplastin Time 52.2 Seconds (21.0-31.0)
[2021-02-13] MEDS: ASPIRIN 81 MG ECTAB PO SCH (08:09)
[2021-02-13] MEDS: METOPROLOL TARTRATE 25 MG TAB PO SCH (08:09)
[2021-02-13] MEDS: ATORVASTATIN 40 MG TAB PO SCH (08:09)
[2021-02-13] MEDS: HEPARIN SODIUM/DEXTROSE 25,000 UNITS/500 ML BAG IV SCH (08:12)
--- NOTE | 2021-02-13 11:26 | Cardiology Progress Note ---
Date of Service February 13, 2021 Assessment & Plan (1) Non-ST elevation (NSTEMI) myocardial infarction: (2) RCA occlusion: (3) Severe aortic stenosis: (4) Bicuspid aortic valve: Plan: Case discussed with cardiothoracic surgery in [place]. Recommend transfer to [facility] for coronary artery bypass grafting x1 and aortic valve replacement. Surgical risks reviewed. Patient agreeable to transfer. Continue aspirin, low-dose beta-hailey, and statin therapy as previously ordered. Continue intravenous heparin due to presence of right coronary artery thrombus. Estimated recovery time and referral to cardiac rehab postoperatively discussed. Patient voiced understanding and agreement. All questions answered to patient satisfaction. Admission and Anticipated Discharge Date Admission Date: February 12, 2021 Subjective Patient seen and examined at the bedside. Feeling well overnight. Notes occasional episodes of chest discomfort overnight lasting 1-5 minutes. Describes discomfort as a tightness, mild (1/10). No associated shortness of breath, palpitations, or diaphoresis. Denies orthopnea, or PND. Mild right wrist discomfort without ecchymosis or hematoma. Awaiting transfer to [facility] for coronary artery bypass grafting and aortic valve replacement. Review of Systems Review of Systems: All systems reviewed & are unremarkable except as noted in Subjective Physical Exam Constitutional: well developed and well nourished; no acute distress Respiratory: normal respiratory effort, lungs clear to auscultation no respiratory distress, no labored breathing, no retractions and does not use accessory muscles Auscultation: no diminished lung sounds, no crackles, no rales, no rhonchi and no wheezes Cardiovascular: Rate/Rhythm: regular rate and regular rhythm Heart Sounds: normal S1 and + murmur; + abnormal S2, no gallop and no cardiac rub Vessels: + carotid bruit, femoral pulses present and radial pulses present (No ecchymosis or hematoma); no JVD Extremities: no edema Gastrointestinal (Abdomen): Inspection/Auscultation: normal bowel sounds; abdomen not distended Percussion/Palpation: abdomen soft; abdomen nontender, no guarding and abdomen not rigid Neurologic: CN's II-XI intact bilaterally and moves all extremities; no focal motor deficits Speech / Cognition: normal speech Motor/Sensory: no tremor Psychiatric: A+Ox3, euthymic affect Results & Data ([facility]) Vital Signs (Past 12 Hours) Vital Signs Temp Pulse Pulse Resp BP BP Pulse Ox 02/13/21 08:00 58 L 02/13/21 07:00 36.8 C 69 17 152/92 H 93 02/13/21 04:49 70 02/13/21 03:28 02/13/21 03:18 36.6 C 76 18 141/84 H 90 02/12/21 23:42 36.9 C 68 18 132/74 94 Pulse Ox 02/13/21 08:00 02/13/21 07:00 02/13/21 04:49 02/13/21 03:28 94 02/13/21 03:18 02/12/21 23:42
--- NOTE | 2021-02-14 10:46 | Electrocardiogram Report ---
Test Reason : Blood Pressure : / mmHG Vent. Rate : 063 BPM Atrial Rate : 063 BPM P-R Int : 208 ms QRS Dur : 098 ms QT Int : 440 ms P-R-T Axes : 057 005 -56 degrees QTc Int : 450 ms Normal sinus rhythm Left ventricular hypertrophy with repolarization abnormality Abnormal ECG Confirmed by Hiren Rice ([id number]) on 02/14/2021 10:46:02 AM Referred By: REFERRED SELF Confirmed By:Jose Rice
== END 2021-02-13 19:45 | disposition short-term general hospital (02) | DRG 281 ==
LOC: ED 18:42 → EDINP 02-12 00:43 → SUATTDRO 02-12 00:43 → 2S 02-12 14:20 → 2W 02-13 18:17
PROC: CLB.CCO (2021-02-12 10:00)